=== PATIENT | male | born 1985 | race Caucasian/White ===

== ENCOUNTER 2018-12-29 23:03 | Emergency (ER) | payer OTHER ==
[~2018-12-29] VITALS: Ht 180.3 cm; Wt 145.6 kg
[2018-12-29 23:10] VITALS: Ht 180.3 cm; Wt 145.6 kg
[2018-12-29 23:41] LABS: BASOPHIL % 1.7 % (0-2); PLATELET COUNT 494 x10^3mcL (130-400); RED CELL DISTRIBUTION WIDTH 17.7 % (11.5-14.5)
[2018-12-29 23:56] LABS: CALCIUM 8.3 mg/dL (8.5-10.1); CARBON DIOXIDE 23.6 mmol/L (21-32); CHLORIDE SERUM 105 mmol/L (98-107); CREATININE SERUM 1.1 mg/dL (0.7-1.3); GFR1 > 60 mL/min; GLUCOSE SERUM 115 mg/dL (74-106); POTASSIUM SERUM 3.1 mmol/L (3.5-5.1); SODIUM SERUM 139 mmol/L (136-145)
[2018-12-30 00:14] LABS: ALKALINE PHOSPHATASE 106 U/L (46-116); ALT/SGPT 27 U/L (16-63); AST/SGOT 20 U/L (15-37); BILIRUBIN TOTAL 0.2 mg/dL (0.20-1.00); C REACTIVE PROTEIN 6.4 mg/dL (<=0.9); TOTAL PROTEIN, SERUM 7.7 g/dL (6.4-8.2)
[2018-12-30 00:15] LABS: ALBUMIN 2.9 g/dL (3.4-5.0)
[2018-12-30 00:24] LABS: ERYTHROCYTE SED RATE 78 mm/hr (0-15)
[2018-12-30 00:29] LABS: FREE T4 0.91 ng/dL (0.76-1.46); FREE THYROXINE INDEX 1.9 ug/dL (1.4-4.5)
[2018-12-30 00:33] LABS: CK-MB 0.7 ng/mL (0-3.6)
[2018-12-30 00:50] LABS: T3 TOTAL 1.05 ng/mL
[2018-12-30 03:07] LABS: UA SPECIFIC GRAVITY >=1.030 (1.005-1.035); microscopic required? YES; urine erythrocyte NEGATIVE (NEGATIVE)
[2018-12-30 05:31] VITALS: BP 115/80
== END 2018-12-30 05:31 | disposition home or self-care (01) ==
LOC: ED 23:03
PROVIDERS: Specialist
DX: R10.9 Unspecified abdominal pain (principal); Z90.49 Acquired absence of other specified parts of digestive tract; E66.01 Morbid (severe) obesity due to excess calories
CPT/HCPCS: 84439; J1885; J2405; J3010; J7030; Q0092